=== PATIENT | female | born 1930 | race Caucasian/White ===

== ENCOUNTER 2016-08-14 22:43 | Emergency (ER) | payer MEDICARE, OTHER ==
--- OUTSIDE RECORDS SUMMARY | 2016-08-14 23:02 | XMS REPORT | Continuity of Care Document ---
:1930 Author Organization [facility] ([facility]) Address [address] [place] [address] Phone [phone] Care Team Providers Name Role Phone Bridger Chahal Primary Care Provider [phone] Source Comments This disclosure is being made pursuant to the Care Everywhere program, applicable federal and state laws, and may not contain all informaitonavailable regarding this patient.[facility] ([facility]) Active Allergies and Adverse Reactions Allergen Noted Date Severity Reactions Comments Codeine OTHER STROKE LIKE SYMPTOMS Milk Containing Unknown Products Morphine Nausea & Vomiting Current Medications Not on file Active Problems Problem Noted Date Spinal stenosis, unspecified region other than cervical 12/19/2005 Degeneration of intervertebral disc, site unspecified 06/07/1999 Immunizations Name Dates Previously Given Next Due Influenza, unspecified 03/08/2002 Social History Tobacco Use Types Packs/Day Years Used Date Never Assessed Last Filed Vital Signs Vital Sign Reading Time Taken Blood Pressure 156/78 12/19/2005 2:27 PM CDT Pulse 95 12/19/2005 2:27 PM CDT Temperature 36.3 C (97.34 F) 05/22/2003 10:38 AM [employer] WORK[employer] Respiratory Rate - - Height 1.55 m (5' 1.02") 12/19/2005 2:27 PM CDT Weight 139.898 kg (308 lb 6.7 oz) 12/19/2005 2:27 PM CDT Body Mass Index 58.23 12/19/2005 2:27 PM CDT Oxygen Saturation - - Plan of Care Health Maintenance Due Date Last Done Comments Hepatitis B Vaccine (1 of 3 - Primary 1930 Series) Tdap Vaccine 1942 Td Vaccine 1949 Colonoscopy 03/08/1981 Zoster Vaccine 1991 Osteoporosis Screening (DXA Bone Density) 1996 Pneumococcal Vaccine (1 of 2 - PCV13) 1996 Lipid Disorder Screening 05/22/2008 05/22/2003, 03/08/2002 Influenza Vaccine: Seasonal (#1) 12/10/2015 03/08/2002 Results from Last 3 Months Not on file
[2016-08-14 23:35] LABS: Hematocrit 39.5 % (37.0-47.0); Hemoglobin 13.4 gm/dL (12.5-16.0); Mean Cell Volume 91.4 fl (78-100); Mean Corpuscular Hgb Conc 33.9 g/dl (32-36); Mean Platelet Volume 9.9 fl (6.0-9.5); Neutrophil % 51.9 % (42-75.0); Platelet Count 155 K/mm3 (150-450); Red Blood Count 4.32 M/mm3 (4.2-5.4); Red Cell Distribution Width 13.1 % (11.5-14.0); White Blood Count 7.7 K/mm3 (4.0-10.5)
[2016-08-14 23:55] LABS: ALT 28 U/L (19-67); AST 31 U/L (0-48); Albumin * 3.1 gm/dl (3.4-5.0); Alkaline Phosphatase * 82 U/L (50-170); Anion Gap 14.7 mmol/L (6.8-13.8); BUN/Creatinine Ratio 15.4 (9.0-21.6); Bilirubin, Total 0.3 mg/dL (0.0-1.1); Blood Urea Nitrogen 16 mg/dL (3-23); Ca. Corrected For Albumin 9.3 mg/dL (8.4-10.2); Calcium * 8.9 mg/dL (7.9-10.9); Carbon Dioxide 26.2 mmol/L (24-32.6); Chloride 103 mmol/L (97-106); Glucose * 88 mg/dL (70-110); Potassium 4.9 mmol/L (3.4-4.6); Sodium 139 mmol/L (132-142); Total Protein 6.8 gm/dL (6.2-8.2)
--- NOTE | 2016-08-15 00:06 | ERNOTE ---
Lower Extremity HPI - General Time Seen by Provider: 08/14/16 22:48 Source: patient, family - Immun/Allergies/Home Medications Immunizations: IMMUNIZATION HX Immunizations Up to Date Yes History of Influenza Vaccine No Hx Pneumococcal Vaccination No Allergies/Adverse Reactions: Allergies Allergy/AdvReac Type Severity Reaction Status Date / Time grass pollen-sweet vernal, Allergy Mild Itchy eyes Verified 02/27/16 11:13 standardized [grass poll-sweet vernal, std.] codeine [Codeine] AdvReac Intermediate Trouble Verified 02/27/16 11:13 Speaking, nausea allopurinol AdvReac Mild Rash Verified 02/27/16 11:13 Home Medications: HOME MEDICATIONS Ascorbic Acid [Vitamin C] 1,000 mg PO DAILY 02/27/14 [Last Taken Unknown] Aspirin [Aspirin Enteric Coated] 81 mg PO DAILY 02/27/14 [Last Taken Unknown] Atorvastatin Calcium [Lipitor] 10 mg PO DAILY 02/27/14 [Last Taken Unknown] Calcium Carbonate [Calcium] 500 mg PO DAILY 02/27/14 [Last Taken Unknown] Cyanocobalamin [Vitamin B-12] 1,000 mcg PO DAILY 02/27/14 [Last Taken Unknown] Furosemide [Lasix] 20 mg PO DAILY 02/27/14 [Last Taken Unknown] Garlic [Odorless Garlic] 1,250 mg PO DAILY 02/27/14 [Last Taken Unknown] Glimepiride [Amaryl] 8 mg PO DAILY@0700 02/27/14 [Last Taken Unknown] Lansoprazole [Prevacid] 30 mg PO DAILY 02/27/14 [Last Taken Unknown] Lisinopril 5 mg PO DAILY 02/27/14 [Last Taken Unknown] Nystatin [Mycostatin (Nystatin) Cream] 30 gm TP BID PRN 02/27/14 [Last Taken Unknown] [place] Oil/[place]-3 Fatty Acids [Fish Oil] 1,200 mg PO DAILY 02/27/14 [Last Taken Unknown] Triamcinolone Acetonide [Kenalog 0.1%] 15 gm TP BID PRN 02/27/14 [Last Taken Unknown] Ubidecarenone [Co Q-10] 150 mg PO DAILY 02/27/14 [Last Taken Unknown] Vitamin B Complex [B Complex] 1 each PO DAILY 02/27/14 [Last Taken Unknown] Vitamin E (Dl,Tocopheryl Acet) [Vitamin E] 400 units PO DAILY 02/27/14 [Last Taken Unknown] metFORMIN HCL [Glucophage] 1,000 mg PO BIDWM 02/27/14 [Last Taken Unknown] metFORMIN HCL [Glucophage] 500 mg PO DAILY 02/27/14 [Last Taken Unknown] oxyCODONE HCL [Oxycodone HCl] 10 mg PO QID PRN 02/27/14 [Last Taken Unknown] Cephalexin Monohydrate [Keflex] 500 mg PO QID #40 cap 02/15/15 [Last Taken Unknown] Levofloxacin [Levaquin] 500 mg PO DAILY #10 tab 03/23/15 [Last Taken Unknown] Ciprofloxacin HCl [Cipro] 500 mg PO BID #20 tablet 01/09/16 [Last Taken Unknown] traMADol HCL [Ultram] 50 mg PO QID PRN #20 tablet 02/27/16 [Last Taken Unknown] - History of Present Illness Narrative: pt is a diabetic and has a red weepy right ankle/leg. She has no fever. she has been given Clindamycin and refuses to take it as she read the side effect profile. She has no chills and does not feel sick Review of Systems - Review of Systems Constitutional: Present: no symptoms reported EYE: Present: no symptoms reported ENT: Present: no symptoms reported Respiratory: Present: no symptoms reported Cardiology: Present: no symptoms reported Gastrointestinal/Abdominal: Present: no symptoms reported Genitourinary: Present: no symptoms reported Musculoskeletal: Present: See HPI - Patient's Past Medical History Patient History - Medical: Arthritis, Diabetes Type 2, GERD, Obesity, Osteoarthritis, Other Patient History - Cardiac/Respiratory: Bronchitis Patient History - Cancer: No Hx of Cancer Patient History - Surgical Procedures: Hysterectomy, Other Patient History - Other: None - Family History Mother Family History - Medical: Family History - Cardiac/Respiratory: No pertinent hx Father Family History - Medical: Family History - Cardiac/Respiratory: History Unknown - Social History Living Situations: alone Abuse History: No History of abuse Psych History: No pertinent hx Alcohol Use: none Drug Use: none - Immunizations Immunizations Up to Date: Yes Hx Pneumococcal Vaccination: No History of Influenza Vaccine: No Physical Exam - Physical Exam General Appearance: Present: wd/wn, alert, no apparent distress Respiratory: Present: no respiratory distress, normal breath sounds, no accessory muscle use, chest nontender, lungs clear Cardiovascular/Chest: Present: regular rate, rhythm, no murmur, normal peripheral pulses Gastrointestinal/Abdominal: Present: normal bowel sounds, nontender Extremity Exam: Present: other - both anterior tibial regions are red as in venous stasis. the right ankle area is hyperkeratotic and there is some weepiness noted. Areas are warm but no mary pus or openings noted in skin. ED Progress - Results and Orders Patient's Lab Results:: I have reviewed the patient's lab results. - Vital Signs Patient's Vital Signs:: I have reviewed the patient's vital signs. Vital Signs: Vital Signs 08/14/16 22:51 Temperature 36.2 C L Pulse Rate 88 Respiratory 14 Rate Blood Pressure 145/55 O2 Sat by Pulse 95 Oximetry - Progress/Reassessment Chief Complaint: Lower Extremity Pain/ Injury Plan - Plan Plan: pt is a diabetic but her RBS is 88. she will be given Rocephin 2 gm IV and discharged home. I suggested she speak to her physician before NOT taking what was justifiably prescribed for her. Departure Clinical Impression: Cellulitis of ankle - Departure Disposition: Home self-care Condition: Good Instructions: Diabetes and Foot Care Additional Instructions: follow up with your doctor and please take the Antibiotic prescribed by him. Referrals: Blayne West DO [Primary Care Provider] -
[2016-08-15 01:05] VITALS: BP 138/60
== END 2016-08-15 00:30 | disposition home or self-care (01) ==
LOC: ER 22:43
DX: L03.115 Cellulitis of right lower limb (principal)

== ENCOUNTER 2017-02-21 13:48 | Emergency (ER) | payer MEDICARE ==
--- NOTE | 2017-02-21 14:25 | ERNOTE ---
Integumentary HPI - Narrative Date of Service: 02/21/17 - General Presenting Symptoms: other - cellulitis Time Seen by Provider: 02/21/17 14:02 Source: patient Exam Limitations: no limitations - Immun/Allergies/Home Medications Immunizations: IMMUNIZATION HX Immunizations Up to Date Yes History of Influenza Vaccine No Hx Pneumococcal Vaccination No Allergies/Adverse Reactions: Allergies Allergy/AdvReac Type Severity Reaction Status Date / Time grass pollen-sweet vernal, Allergy Mild Itchy eyes Verified 02/21/17 14:06 standardized [grass poll-sweet vernal, std.] codeine [Codeine] AdvReac Intermediate Trouble Verified 02/21/17 14:06 Speaking, nausea allopurinol AdvReac Mild Rash Verified 02/21/17 14:06 Home Medications: HOME MEDICATIONS Ascorbic Acid [Vitamin C] 1,000 mg PO DAILY 02/27/14 [Last Taken Unknown] Aspirin [Aspirin Enteric Coated] 81 mg PO DAILY 02/27/14 [Last Taken Unknown] Atorvastatin Calcium [Lipitor] 10 mg PO DAILY 02/27/14 [Last Taken Unknown] Calcium Carbonate [Calcium] 500 mg PO DAILY 02/27/14 [Last Taken Unknown] Cyanocobalamin [Vitamin B-12] 1,000 mcg PO DAILY 02/27/14 [Last Taken Unknown] Furosemide [Lasix] 20 mg PO DAILY 02/27/14 [Last Taken Unknown] Garlic [Odorless Garlic] 1,250 mg PO DAILY 02/27/14 [Last Taken Unknown] Glimepiride [Amaryl] 8 mg PO DAILY@0700 02/27/14 [Last Taken Unknown] Lansoprazole [Prevacid] 30 mg PO DAILY 02/27/14 [Last Taken Unknown] Lisinopril 5 mg PO DAILY 02/27/14 [Last Taken Unknown] Nystatin [Mycostatin (Nystatin) Cream] 30 gm TP BID PRN 02/27/14 [Last Taken Unknown] [place] Oil/[place]-3 Fatty Acids [Fish Oil] 1,200 mg PO DAILY 02/27/14 [Last Taken Unknown] Triamcinolone Acetonide [Kenalog 0.1%] 15 gm TP BID PRN 02/27/14 [Last Taken Unknown] Ubidecarenone [Co Q-10] 150 mg PO DAILY 02/27/14 [Last Taken Unknown] Vitamin B Complex [B Complex] 1 each PO DAILY 02/27/14 [Last Taken Unknown] Vitamin E (Dl,Tocopheryl Acet) [Vitamin E] 400 units PO DAILY 02/27/14 [Last Taken Unknown] metFORMIN HCL [Glucophage] 1,000 mg PO BIDWM 02/27/14 [Last Taken Unknown] metFORMIN HCL [Glucophage] 500 mg PO DAILY 02/27/14 [Last Taken Unknown] oxyCODONE HCL [Oxycodone HCl] 10 mg PO QID PRN 02/27/14 [Last Taken Unknown] traMADol HCL [Ultram] 50 mg PO QID PRN #20 tablet 02/27/16 [Last Taken Unknown] Cefdinir 300 mg PO BID 08/18/16 [Last Taken Unknown] Cephalexin Monohydrate [Keflex] 500 mg PO QID #40 cap 02/21/17 [Last Taken Unknown] - History of Present Illness Narrative: Pt. with chronic venous stasis comes in with c/o redness and swelling with leaking BLE for severeal weeks. Pt. has a difficult time getting to the doctor so she was only able to come as she was able today. Pt. denies any fever but states that she has had cellulitis is the past but the lst time she was started on antibiotics and it resolved and was followed up once by the [facility]. Pt. denies ny SOB, CP, NVD, but does states that she has poor apetite and does not eat as much protein as she should. Review of Systems - Review of Systems Constitutional: Present: no symptoms reported EYE: Present: no symptoms reported ENT: Present: no symptoms reported Respiratory: Present: no symptoms reported. Absent: shortness of breath, cough , wheezing Cardiology: Present: no symptoms reported. Absent: chest pain, palpitations, edema Gastrointestinal/Abdominal: Present: no symptoms reported Musculoskeletal: Present: no symptoms reported. Absent: back pain, joint pain Skin: Present: change in color - redness BLE Neurological: Present: no symptoms reported. Absent: headache, dizziness/light- headedness, numbness, tingling All Other Systems: All systems neg except as marked - Patient's Past Medical History Patient History - Medical: Arthritis, Diabetes Type 2, GERD, Obesity, Osteoarthritis Patient History - Cardiac/Respiratory: Bronchitis Patient History - Cancer: No Hx of Cancer Patient History - Surgical Procedures: Hysterectomy, Other Patient History - Other: None LMP (females 10-50): Menopausal - Family History Mother Family History - Medical: Family History - Cardiac/Respiratory: No pertinent hx Father Family History - Medical: Family History - Cardiac/Respiratory: History Unknown - Social History Living Situations: alone Abuse History: No History of abuse Psych History: No pertinent hx Smoking Status: Never smoker Alcohol Use: none Drug Use: none - Immunizations Immunizations Up to Date: Yes Hx Pneumococcal Vaccination: No History of Influenza Vaccine: No Physical Exam - Physical Exam General Appearance: Present: wd/wn, alert, no apparent distress Head Exam: Present: normal inspection, no evidence of injury Eye Exam: Normal inspection: bilateral, PERRL: bilateral, EOMI: bilateral Neck: Present: normal inspection, nontender. Absent: lymphadenopathy (R), lymphadenopathy (L) Respiratory: Present: no respiratory distress, normal breath sounds, no accessory muscle use, chest nontender, lungs clear Cardiovascular/Chest: Present: regular rate, rhythm, no murmur, normal peripheral pulses Back Exam: Present: normal inspection Extremity Exam: Present: normal inspection, non-tender, normal range of motion, no edema Neurological Exam: Present: alert, oriented, normal mood/affect, no motor/ sensory deficits Skin Exam: Present: warm/dry, pallor - R ankle, other - redness BLE with crepitus R ankle and warmth BLE ED Progress - Results and Orders Patient's Lab Results:: I have reviewed the patient's lab results. - Vital Signs Patient's Vital Signs:: I have reviewed the patient's vital signs. Vital Signs: Vital Signs 02/21/17 13:50 Temperature 36.5 C Pulse Rate 98 Respiratory 16 Rate Blood Pressure 142/64 O2 Sat by Pulse 96 Oximetry - Progress/Reassessment Chief Complaint: Cellulitis Departure Clinical Impression: Cellulitis Qualifiers: Site of cellulitis: extremity Site of cellulitis of extremity: lower extremity Laterality: unspecified laterality Qualified Code(s): L03.119 - Cellulitis of unspecified part of limb - Departure Disposition: Home self-care Condition: Good Instructions: Cellulitis, Adult, [id number] Additional Instructions: Please follow up with primary provider in 2-3 days. Please keep silvadene cream and kerlix on BLE and call wound care center for dressing cahange and follow up care. Referrals: Blayne West DO [Primary Care Provider] - Prescriptions: Cephalexin Monohydrate [Keflex] 500 mg PO QID #40 cap
[2017-02-21 14:42] LABS: Hematocrit 37.7 % (37.0-47.0); Hemoglobin 12.9 gm/dL (12.5-16.0); Mean Cell Volume 93.5 fl (78-100); Mean Corpuscular Hgb Conc 34.2 g/dl (32-36); Mean Platelet Volume 10.3 fl (6.0-9.5); Neutrophil # 4.5 K/mm3 (1.3-6.0); Neutrophil % 60.8 % (42-75.0); Platelet Count 163 K/mm3 (150-450); Red Blood Count 4.03 M/mm3 (4.2-5.4); Red Cell Distribution Width 13.2 % (11.5-14.0); White Blood Count 7.4 K/mm3 (4.0-10.5)
[2017-02-21 14:56] LABS: Anion Gap 11.8 mmol/L (6.8-13.8); BUN/Creatinine Ratio 20.6 (9.0-21.6); Bilirubin, Total 0.6 mg/dL (0.0-1.1); CRP 0.9 mg/dL (0.0-0.9); Ca. Corrected For Albumin 9.8 mg/dL (8.4-10.2); Calcium * 9.3 mg/dL (7.9-10.9); Carbon Dioxide 30.1 mmol/L (24-32.6); Potassium 4.9 mmol/L (3.4-4.6); Total Protein 6.6 gm/dL (6.2-8.2)
[2017-02-21] MEDS ORDERED: SILVER SULFADIAZINE 50 APPL JAR TP ONE ×2 (15:23→15:24)
[2017-02-21 16:29] VITALS: BP 126/53
== END 2017-02-21 16:14 | disposition home or self-care (01) ==
LOC: ER 13:48
DX: L03.119 Cellulitis of unspecified part of limb (principal)

== ENCOUNTER 2017-11-03 09:00 | Observation (INO) | payer MEDICARE ==
[2017-11-03 09:42] LABS: Hematocrit 36.1 % (37.0-47.0); Hemoglobin 11.9 gm/dL (12.5-16.0); Mean Cell Volume 91.6 fl (78-100); Mean Corpuscular Hemoglobin 30.2 pg (27-31); Mean Platelet Volume 9.8 fl (8-12.5); Neutrophil # 8.3 K/mm3 (1.3-6.0); Neutrophil % 84.1 % (42-75.0); Platelet Count 163 K/mm3 (150-450); Red Blood Count 3.94 M/mm3 (4.2-5.4); Red Cell Distribution Width 13.6 % (11.5-14.0); White Blood Count 9.9 K/mm3 (4.0-10.5)
[2017-11-03 10:01] LABS: Albumin * 2.5 gm/dl (3.4-5.0); Anion Gap 11.8 mmol/L (6.8-13.8); BUN/Creatinine Ratio 16.8 (9.0-21.6); Bilirubin, Total 0.7 mg/dL (0.0-1.1); Ca. Corrected For Albumin 9.9 mg/dL (8.4-10.2); Carbon Dioxide 26.6 mmol/L (24-32.6); Potassium 4.4 mmol/L (3.4-4.6); Total Protein 5.9 gm/dL (6.2-8.2)
[2017-11-03 10:01] LABS: Urine Bilirubin Negative (NEGATIVE); Urine Blood Negative /ul (NEGATIVE); Urine Ketone 15 mg/dL (NEGATIVE); Urine Nitrite Negative (NEGATIVE); Urine Protein Negative (NEGATIVE); Urine Urobilinogen Normal (NORMAL); Urine pH 5.5 pH (5.0-7.0)
[2017-11-03 10:11] LABS: Urine Appearance Clear (CLEAR); Urine Bacteria None Seen; Urine Color Yellow; Urine RBC None Seen /hpf (0-5); Urine Transitional Epi Cells Moderate - 2+ /hpf; Urine WBC None Seen /hpf (0-5)
--- NOTE | 2017-11-03 11:11 | ERNOTE ---
Lower Extremity HPI - Narrative Date of Service: 11/03/17 - General Lower Extremities Pain: knee: left Time Seen by Provider: 11/03/17 09:10 Source: patient, family Exam Limitations: no limitations - Immun/Allergies/Home Medications Immunizations: IMMUNIZATION HX Immunizations Up to Date Yes History of Influenza Vaccine No Hx Pneumococcal Vaccination No Allergies/Adverse Reactions: Allergies Allergy/AdvReac Type Severity Reaction Status Date / Time grass pollen-sweet vernal, Allergy Mild Itchy eyes Verified 11/03/17 09:08 standardized [grass poll-sweet vernal, std.] codeine [Codeine] AdvReac Intermediate Trouble Verified 11/03/17 09:08 Speaking, nausea allopurinol AdvReac Mild Rash Verified 11/03/17 09:08 Home Medications: HOME MEDICATIONS Ascorbic Acid [Vitamin C] 1,000 mg PO DAILY 02/27/14 [Last Taken Unknown] Aspirin [Aspirin Enteric Coated] 81 mg PO DAILY 02/27/14 [Last Taken Unknown] Atorvastatin Calcium [Lipitor] 10 mg PO DAILY 02/27/14 [Last Taken Unknown] Calcium Carbonate [Calcium] 500 mg PO DAILY 02/27/14 [Last Taken Unknown] Cyanocobalamin [Vitamin B-12] 1,000 mcg PO DAILY 02/27/14 [Last Taken Unknown] Furosemide [Lasix] 20 mg PO DAILY 02/27/14 [Last Taken Unknown] Garlic [Odorless Garlic] 1,250 mg PO DAILY 02/27/14 [Last Taken Unknown] Glimepiride [Amaryl] 8 mg PO DAILY@0700 02/27/14 [Last Taken Unknown] Lansoprazole [Prevacid] 30 mg PO DAILY 02/27/14 [Last Taken Unknown] Lisinopril 5 mg PO DAILY 02/27/14 [Last Taken Unknown] Nystatin [Mycostatin (Nystatin) Cream] 30 gm TP BID PRN 02/27/14 [Last Taken Unknown] [place] Oil/[place]-3 Fatty Acids [Fish Oil] 1,200 mg PO DAILY 02/27/14 [Last Taken Unknown] Triamcinolone Acetonide [Kenalog 0.1%] 15 gm TP BID PRN 02/27/14 [Last Taken Unknown] Ubidecarenone [Co Q-10] 150 mg PO DAILY 02/27/14 [Last Taken Unknown] Vitamin B Complex [B Complex] 1 each PO DAILY 02/27/14 [Last Taken Unknown] Vitamin E (Dl,Tocopheryl Acet) [Vitamin E] 400 units PO DAILY 02/27/14 [Last Taken Unknown] metFORMIN HCL [Glucophage] 1,000 mg PO BIDWM 02/27/14 [Last Taken Unknown] metFORMIN HCL [Glucophage] 500 mg PO DAILY 02/27/14 [Last Taken Unknown] oxyCODONE HCL [Oxycodone HCl] 10 mg PO QID PRN 02/27/14 [Last Taken Unknown] - History of Present Illness Narrative: patient fell out of bed in night c/o left knee pain and swelling Occurred: this morning Location of Incident: home Method of Injury: Reports: fell, direct blow Reason for Fall: Reports: other - rolled out of bed Loss of Consciousness: Reports: no loss of consciousness Modifying Factors - (Improves): Reports: rest Modifying Factors - (Worsens): Reports: movement Associated Symptoms: Reports: unable to bear weight Other Injuries: Reports: none Prior Treament: Reports: recently seen, treated by physician Review of Systems - Narrative Narrative: unremarkable - Review of Systems Constitutional: Present: See HPI, weakness, fatigue, malaise EYE: Present: no symptoms reported ENT: Present: no symptoms reported Respiratory: Present: no symptoms reported Cardiology: Present: no symptoms reported Gastrointestinal/Abdominal: Present: no symptoms reported Genitourinary: Present: no symptoms reported Musculoskeletal: Present: See HPI, joint pain, joint swelling, other - left knee Skin: Present: no symptoms reported Neurological: Present: no symptoms reported Endocrine: Present: no symptoms reported Hematologic/Lymphatic: Present: no symptoms reported Psych: Present: no symptoms reported All Other Systems: All systems neg except as marked - Narrative Narrative: unremarkable - Patient's Past Medical History Patient History - Medical: Arthritis, Diabetes Type 2, GERD, Obesity, Osteoarthritis, Other Patient History - Cardiac/Respiratory: Bronchitis Patient History - Cancer: No Hx of Cancer Patient History - Surgical Procedures: Hysterectomy, Other Patient History - Other: None LMP (females 10-50): Menopausal - Family History Family History:: no untoward family reactions to anesthesia, no familial bleeding tendencies, no family history of clotting disorders, no family history of premature - Family History Mother Family History - Medical: Family History - Cardiac/Respiratory: No pertinent hx Family History - Cancer: No pertinent family hx Father Family History - Medical: Family History - Cardiac/Respiratory: History Unknown Family History - Cancer: No pertinent family hx - Social History Living Situations: home Abuse History: No History of abuse Psych History: No pertinent hx Does anyone smoke in the home?: No Smoking Status: Never smoker Have you smoked in the past 12 months: No Do you dip or chew tobacco: No Patient requests Smoking Cessation Consult: No Initiate information on Smoking Cessation: No Alcohol Use: none Drug Use: none - Immunizations Immunizations Up to Date: Yes Hx Pneumococcal Vaccination: No History of Influenza Vaccine: No Physical Exam - Physical Exam General Appearance: Present: mild distress Head Exam: Present: normal inspection, no evidence of injury Eye Exam: Normal inspection: bilateral, PERRL: bilateral, EOMI: bilateral Ears, Nose, Throat: Present: normal ENT inspection, normal pharynx Neck: Present: normal inspection, nontender Respiratory: Present: no respiratory distress, normal breath sounds, no accessory muscle use, chest nontender, lungs clear Cardiovascular/Chest: Present: regular rate, rhythm, systolic murmur Gastrointestinal/Abdominal: Present: normal bowel sounds, nontender, nondistended, soft, no organomegaly Back Exam: Present: normal inspection, normal range of motion, no CVA tenderness , no vertebral tenderness Extremity Exam: Present: normal except - - left knee swollen , no deformity noted Neurological Exam: Present: alert, oriented, normal mood/affect, no motor/ sensory deficits Skin Exam: Present: normal color, warm/dry Lymphatic Exam: Present: no adenopathy ED Progress - Date and Time Seen: Date and Time: 11/03/17 12:38 patient cannot ambulate due to weakness and requires therapy in [facility] - Results and Orders Patient's Lab Results:: I have reviewed the patient's lab results. - Vital Signs Patient's Vital Signs:: I have reviewed the patient's vital signs. Vital Signs: Vital Signs 11/03/17 11/03/17 11/03/17 09:02 09:11 09:42 Temperature 36.8 C Pulse Rate 118 H 113 H 108 H Respiratory 14 12 12 Rate Blood Pressure 112/58 112/58 116/50 O2 Sat by Pulse 93 95 97 Oximetry 11/03/17 11/03/17 10:01 10:25 Temperature Pulse Rate 105 H 103 H Respiratory 17 17 Rate Blood Pressure 114/52 116/56 O2 Sat by Pulse 91 92 Oximetry - X-Ray X-Ray #1 X-Ray: knee - effusion no acute fx, Interpretation: Discd w/ radiologist - Progress/Reassessment Chief Complaint: Lower Extremity Pain/ Injury - Transfer of Care Expected Disposition: Admit Plan - Plan Plan: to admit to observation for weakness and paiin management of knee sprain Departure Clinical Impression: Left knee sprain - Departure Disposition: Still a patient Condition: Fair
[2017-11-03] MEDS ORDERED: HYDROcodone/ACETAMINOPHEN 1 EACH TABLET PO ONE (12:22)
[2017-11-03] MEDS ORDERED: HYDROcodone/ACETAMINOPHEN 1 EACH TABLET ONE (12:24)
[2017-11-03] MEDS: HYDROcodone/ACETAMINOPHEN 1 EACH TABLET PO PRN (17:11)
--- NOTE | 2017-11-03 19:41 | HP ---
Chief Complaint - Chief Complaint Date of Service: 11/03/17 Time of Service: 19:41 Chief Complaint: ' Fall, weakness'. Source of HPI- Pt; reliable, ERP report/ notes. History of Present Illness: Mrs. Adkins is a 87-yr-old WF who is a and a pt of Dr. Yudi Camargo. Her PMH is significant for: Chronic back pain, Chronic pain syndrome, DM II, Diverticulosis, HTN, Fibromyalgia, HLD,Morbid Obesity, Osteoarthritis & Venous Stasis dermatitis. Pt states that for at least 5 days prior to coming to the hospital, her LT knee had been hurting. Her lift chair has been broken for a while and therefore mobility has been harder. Last night around 0400am, she lost balance due to weakness, ended up falling and landing on the LT knee. There was no loss of consciousness. The only pain she endorses is on her LT knee which became worsened after the fall. She laid on the floor for about 4 hours and kept yelling for help about every 30 minutes hoping neighbours would hear her. Her daughter came to check on her around 0800am as she was unreachable by phone. She called the EMS for her. Pt denies fever, chills, n/v, coughing, sob and abdominal pain. At the ED, labwork involving CBC, BMP & UA were unremarkable. The EKG did not show any evidence of ACS/ID. The LT knee imaging did not show any acute findings involving fracture or dislocation. Pt required a maximum of 2 with transfers due to pain and weakness. Therefore, pt was admitted under observation due to very poor mobility that can lead to life threatening injuries and will need placement finding for strengthening rehabilitation. - Patient's Past Medical History Patient History - Medical: Arthritis, Diabetes Type 2, GERD, Obesity, Osteoarthritis, Other - Diverticulosis,Fibromyalgia,Morbid Obesity, Venous Stasis dermatitis Patient History - Cardiac/Respiratory: Bronchitis, Hypertension, Hyperlipidemia Patient History - Cancer: No Hx of Cancer Patient History - Surgical Procedures: Hysterectomy, Other Patient History - Other: None LMP (females 10-50): Menopausal - Family History Family History:: no untoward family reactions to anesthesia, no familial bleeding tendencies, no family history of clotting disorders, no family history of premature - Family History Mother Family History - Medical: Family History - Cardiac/Respiratory: No pertinent hx Family History - Cancer: No pertinent family hx Father Family History - Medical: Family History - Cardiac/Respiratory: History Unknown Family History - Cancer: No pertinent family hx - Social History Living Situations: home Abuse History: No History of abuse Psych History: No pertinent hx Does anyone smoke in the home?: No Smoking Status: Never smoker Have you smoked in the past 12 months: No Do you dip or chew tobacco: No Patient requests Smoking Cessation Consult: No Initiate information on Smoking Cessation: No Alcohol Use: none Drug Use: none - Immunizations Immunizations Up to Date: Yes Hx Pneumococcal Vaccination: No History of Influenza Vaccine: No Review Of Systems (GEN) - Review of Systems Generalized/Overall Review: Present: Weakness. Absent: Chills, Fever, Malaise EENTM: Absent: Eye Pain, Blurred Vision, Tearing Respiratory: Absent: Cough, Shortness of Breath, Orthopnea Cardiac: Absent: Chest Pain, Edema, Palpitations Abdominal: Absent: Nausea, Vomiting, Hematemesis, Abdominal Pain, Constipation, Diarrhea Genitourinary: Absent: Burning, Itching, Urgency, Frequency, Incontinent Musculoskeletal: Present: Joint Pain, Back Pain Neurological: Absent: Headache, Anxiety, Depressed, Weakness Skin: Present: Other - erythema on folds.. Absent: Dryness, Lesions Misc: All systems neg except as marked Immunizations: IMMUNIZATION HX Immunizations Up to Date Yes History of Influenza Vaccine No Hx Pneumococcal Vaccination No Allergies/Adverse Reactions: Allergies Allergy/AdvReac Type Severity Reaction Status Date / Time grass pollen-sweet vernal, Allergy Mild Itchy eyes Verified 11/03/17 09:08 standardized [grass poll-sweet vernal, std.] codeine [Codeine] AdvReac Intermediate Trouble Verified 11/03/17 09:08 Speaking, nausea allopurinol AdvReac Mild Rash Verified 11/03/17 09:08 Home Medications: HOME MEDICATIONS Ascorbic Acid [Vitamin C] 1,000 mg PO BID 11/03/17 [Last Taken Unknown] Aspirin [Aspir-Low] 81 mg PO DAILY 11/03/17 [Last Taken Unknown] Atorvastatin Calcium 10 mg PO DAILY 11/03/17 [Last Taken Unknown] B-Complex with Vitamin C [Super B Complex-Vitamin C] 1 each PO DAILY 11/03/17 [ Last Taken Unknown] Calcium Carbonate/Vitamin D3 [Calcium 600-Vit D3 400 Tablet] 1 each PO BID 11/03 [Last Taken Unknown] Cholecalciferol (Vitamin D3) [Vitamin D3] 1,000 unit PO BID 11/03/17 [Last Taken Unknown] Clotrimazole [Lotrimin Cream] 1 appl TP DAILY 11/03/17 [Last Taken Unknown] Cyanocobalamin (Vitamin B-12) [Vitamin B-12] 500 mcg PO DAILY 11/03/17 [Last Taken Unknown] Docusate Sodium [Stool Softener] 250 mg PO DAILY PRN 11/03/17 [Last Taken Unknown] Furosemide [Lasix] 40 mg PO DAILY 11/03/17 [Last Taken Unknown] Garlic [Odorless Garlic] 1,250 mg PO BID 11/03/17 [Last Taken Unknown] Glimepiride [Amaryl] 4 mg PO DAILY 11/03/17 [Last Taken Unknown] Lisinopril 5 mg PO DAILY 11/03/17 [Last Taken Unknown] Nystatin [Mycostatin Cream] 1 appl TP BID 11/03/17 [Last Taken Unknown] [place]-3S/Dha/Epa/Fish Oil [Fish Oil 1,200 mg Softgel] 1 each PO BID 11/03/17 [ Last Taken Unknown] Polyvinyl Alcohol [Artificial Tears] 1 - 2 drop EACHEYE DAILY PRN 11/03/17 [ Last Taken Unknown] Silver Sulfadiazine [Silvadene] 1 appl TP DAILY 11/03/17 [Last Taken Unknown] Sodium Chloride [[place] Saline] 2 sprays NS DAILY PRN 11/03/17 [Last Taken Unknown] Triamcinolone Acetonide [Kenalog 0.025% Cream] 1 appl TP DAILY 11/03/17 [Last Taken Unknown] Ubidecarenone/Vitamin E Mixed [[id number] E 200 mg-20 Unit Sfg] 1 each PO DAILY 11/03/17 [Last Taken Unknown] Vitamin E 400 unit PO DAILY 11/03/17 [Last Taken Unknown] Zinc Oxide 1 appl TP DAILY 11/03/17 [Last Taken Unknown] metFORMIN HCL [Metformin HCl] 1,000 mg PO BIDWM 11/03/17 [Last Taken Unknown] metFORMIN HCL [Metformin HCl] 500 mg PO 1200 11/03/17 [Last Taken Unknown] oxyCODONE HCL [Oxycodone HCl] 10 mg PO Q6H PRN 11/03/17 [Last Taken Unknown] Exam - Exam Vital Signs: Vital Signs - Last Taken Temp 37.2 C 11/03/17 14:50 Pulse 102 H 11/03/17 14:50 Resp 18 11/03/17 14:50 BP 121/65 11/03/17 14:50 Pulse Ox 100 11/03/17 14:50 Constitutional: Present: Alert, Oriented x3, Cooperative, Mild distress, Elderly ENT Exam: Present: normal ENT inspection, dry mucous membranes Eye Exam: bilateral eye: normal inspection, PERRL Neck: Present: non-tender, full range of motion, supple Back Exam: Present: normal inspection, no CVA tenderness Breasts: Present: Exam deferred Respiratory: Present: no respiratory distress, no accessory muscle use, No rales , No wheezing Cardiovascular/Chest: Present: normal peripheral pulses, systolic murmur Abdomen: Present: Normal bowel sounds, soft, nontender /Rectal: Present: Exam deferred Extremity: Present: leg pain - LT. Absent: normal range of motion - LT leg Skin Exam: Present: other - redness/excoriation on the abdominal and perineal folds. Lymphatic: Present: no adenopathy Neurologic: Present: alert, normal mood/affect, oriented x 3 Appearance: Present: appropriate appearance, appropriate insight Eye contact: Present: cooperative, good eye contact, normal speech Thoughts: Present: normal thought pattern, no apparent hallucination Diagnostic Studies: Laboratory Results WBC 9.9 K/mm3 (4.0-10.5) 11/03/17 09:35 RBC 3.94 M/mm3 (4.2-5.4) L 11/03/17 09:35 Hgb 11.9 gm/dL (12.5-16.0) L 11/03/17 09:35 Hct 36.1 % (37.0-47.0) L 11/03/17 09:35 MCV 91.6 fl (78-100) 11/03/17 09:35 MCH 30.2 pg (27-31) 11/03/17 09:35 MCHC 33.0 g/dl (32-36) 11/03/17 09:35 RDW 13.6 % (11.5-14.0) 11/03/17 09:35 Plt Count 163 K/mm3 (150-450) 11/03/17 09:35 MPV 9.8 fl (8-12.5) 11/03/17 09:35 Immature Gran % (Auto) 0.40 % (0.001-0.429) 11/03/17 09:35 Immature Gran # (Auto) 0.04 K/mm3 (0.000-0.0310) H 11/03/17 09:35 Neutrophils % 84.1 % (42-75.0) H 11/03/17 09:35 Lymphocytes % 8.2 % (20-51) L 11/03/17 09:35 Monocytes % 6.7 % (0.0-9) 11/03/17 09:35 Eosinophils % 0.1 % (0.0-3.0) 11/03/17 09:35 Basophils % 0.5 % (0.0-1.0) 11/03/17 09:35 Nucleated RBC % 0.0 k/mm3 (0-1) 11/03/17 09:35 Neutrophils # 8.3 K/mm3 (1.3-6.0) H 11/03/17 09:35 Lymphocytes # 0.81 k/mm3 (1.5-3.5) L 11/03/17 09:35 Monocytes # 0.7 k/mm3 (0.0-1.0) 11/03/17 09:35 Eosinophils # 0.0 k/mm3 (0.0-0.7) 11/03/17 09:35 Absolute Basophils 0.1 k/mm3 (0.0-0.1) 11/03/17 09:35 Sodium 137 mmol/L (132-142) 11/03/17 09:35 Plasma Sodium 139 mmol/L (130-142) 11/03/17 09:35 Potassium 4.4 mmol/L (3.4-4.6) 11/03/17 09:35 Chloride 103 mmol/L (97-106) 11/03/17 09:35 Carbon Dioxide 26.6 mmol/L (24-32.6) 11/03/17 09:35 Anion Gap 11.8 mmol/L (6.8-13.8) 11/03/17 09:35 BUN 16 mg/dL (3-23) 11/03/17 09:35 Creatinine 0.95 mg/dL (0.4-1.4) 11/03/17 09:35 Est GFR (Non-Af Amer) 59 mL/min (60-130) L 11/03/17 09:35 BUN/Creatinine Ratio 16.8 (9.0-21.6) 11/03/17 09:35 Random Glucose 205 mg/dL (70-110) H 11/03/17 09:35 Calcium 9.0 mg/dL (7.9-10.9) 11/03/17 09:35 Calcium Adj for Albumin 9.9 mg/dL (8.4-10.2) 11/03/17 09:35 Total Bilirubin 0.7 mg/dL (0.0-1.1) 11/03/17 09:35 AST 26 U/L (0-48) 11/03/17 09:35 ALT 25 U/L (19-67) 11/03/17 09:35 Alkaline Phosphatase 82 U/L (50-170) 11/03/17 09:35 Total Protein 5.9 gm/dL (6.2-8.2) L 11/03/17 09:35 Albumin 2.5 gm/dl (3.4-5.0) L 11/03/17 09:35 Urine Color Yellow 11/03/17 09:31 Urine Appearance Clear (CLEAR) 11/03/17 09:31 Urine pH 5.5 pH (5.0-7.0) 11/03/17 09:31 Ur Specific Force 1.020 SP.GR. (1.005-1.010) 11/03/17 09:31 Urine Protein Negative mg/dL (NEGATIVE) 11/03/17 09:31 Urine Glucose (UA) Negative mg/dL (NEGATIVE) 11/03/17 09:31 Urine Ketones 15 mg/dL (NEGATIVE) 11/03/17 09:31 Urine Blood Negative /ul (NEGATIVE) 11/03/17 09:31 Urine Nitrate Negative (NEGATIVE) 11/03/17 09:31 Urine Bilirubin Negative mg/dl (NEGATIVE) 11/03/17 09:31 Urine Urobilinogen Normal EU/dl (NORMAL) 11/03/17 09:31 Ur Leukocyte Esterase Negative /ul (NEGATIVE) 11/03/17 09:31 Urine RBC None seen /hpf (0-5) 11/03/17 09:31 Urine WBC None seen /hpf (0-5) 11/03/17 09:31 Ur Epithelial Cells 5-10 /hpf (0-5) H 11/03/17 09:31 Ur Transition Epith Cell Moderate - 2+ /hpf (NONE) H 11/03/17 09:31 Urine Bacteria None seen (NONE) 11/03/17 09:31 Urine Culture Comments Culture to follow 11/03/17 09:31 Assessment/Plan - Assessment/Plan (1) Left knee pain Assessment: The x-ray imaging did not have any acute findings involving fracture or dislocation, however, there was soft tissue swelling with mild to moderate joint knee effusion and pt has excessive pain with minimal movement/ambulation. The joint is not red or hot and therefore doubt septic arthritis. ? non- septic bursitis. May consider consulting ortho. Provide treatment with anti- inflammatory drugs, apply heat or cold and will need continued rehabilitation. Problem: Acute (2) Generalized weakness Assessment: Will have case managment assist with placement finding. Problem: Acute (3) Diabetes Problem: Chronic Qualifiers: Diabetes mellitus type: type 2 (4) HTN (hypertension) Problem: Chronic Qualifiers: Hypertension type: essential hypertension Qualified Code(s): I10 - Essential (primary) hypertension (5) HLD (hyperlipidemia) Problem: Chronic (6) Chronic pain syndrome Problem: Chronic
[2017-11-03] MEDS ORDERED: DOCUSATE CALCIUM 240 MG CAPSULE PO PRN (20:00)
[2017-11-03] MEDS ORDERED: NYSTATIN 15 APPL TUBE TP SCH (21:00)
[2017-11-03] MEDS: NYSTATIN 15 APPL BTL TP SCH ×2 (22:05)
[2017-11-03] MEDS: oxyCODONE HCL 5 MG TABLET PO PRN (22:05)
[2017-11-03] MEDS: CLOTRIMAZOLE 30 APPL TUBE TP SCH (22:21)
[2017-11-03] MEDS: CALCIUM CARBONATE/VITAMIN D3 1 TAB TABLET PO SCH (22:21)
[2017-11-03] MEDS: OMEGA-3 FATTY ACIDS 1 CAP CAPSULE PO SCH (22:22)
[2017-11-03] MEDS: CHOLECALCIFEROL 1,000 UNIT CAPSULE PO SCH (22:22)
[2017-11-03] MEDS: ASCORBIC ACID 500 MG TABLET PO SCH (22:22)
[2017-11-03] MEDS ORDERED: IBUPROFEN PO PRN (23:22)
[2017-11-04] MEDS: HYDROcodone/ACETAMINOPHEN 1 EACH TABLET PO PRN (06:28)
[2017-11-04] MEDS: CALCIUM CARBONATE/VITAMIN D3 1 TAB TABLET PO SCH (08:10)
[2017-11-04] MEDS: CHOLECALCIFEROL 1,000 UNIT CAPSULE PO SCH (08:11)
[2017-11-04] MEDS: ASCORBIC ACID 500 MG TABLET PO SCH (08:11)
[2017-11-04] MEDS: OMEGA-3 FATTY ACIDS 1 CAP CAPSULE PO SCH (08:12)
[2017-11-04] MEDS: NYSTATIN 15 APPL BTL TP SCH (08:12)
[2017-11-04] MEDS: CLOTRIMAZOLE 30 APPL TUBE TP SCH (08:12)
[2017-11-04] MEDS ORDERED: CYANOCOBALAMIN 1,000 MCG TABLET PO SCH (09:00)
[2017-11-04] MEDS ORDERED: ROSUVASTATIN CALCIUM 10 MG TABLET PO SCH ×2 (09:00→21:00)
[2017-11-04] MEDS ORDERED: VITAMIN B COMP W-C 1 TAB TABLET PO SCH (09:00)
[2017-11-04] MEDS ORDERED: GLIMEPIRIDE 4 MG TABLET PO SCH (09:00)
[2017-11-04] MEDS ORDERED: ASPIRIN 81 MG TABLET.DR PO SCH (09:00)
[2017-11-04] MEDS ORDERED: FUROSEMIDE 40 MG TABLET PO SCH (09:00)
[2017-11-04] MEDS ORDERED: LISINOPRIL 5 MG TABLET PO SCH (09:00)
[2017-11-04] MEDS: oxyCODONE HCL 5 MG TABLET PO PRN (10:14)
[2017-11-04 11:33] VITALS: BP 104/72
[2017-11-04] MEDS ORDERED: metFORMIN HCL 500 MG TABLET PO SCH (12:00)
[2017-11-04] MEDS ORDERED: HYDROmorphone HCL 2 MG/ML VIAL IV PRN ×2 (13:26→13:27)
--- NOTE | 2017-11-04 14:47 | DS ---
(1) Debility Problem: Acute (2) Tibial plateau fracture, left Problem: Suspected (3) Generalized weakness Problem: Acute (4) Left knee pain Problem: Acute (5) Left knee sprain Problem: Acute (6) Chronic pain syndrome Problem: Chronic (7) HLD (hyperlipidemia) Problem: Chronic (8) HTN (hypertension) Problem: Chronic Qualifiers: Hypertension type: essential hypertension Qualified Code(s): I10 - Essential (primary) hypertension (9) Cervical radiculopathy Problem: Chronic (10) Venous (peripheral) insufficiency Problem: Chronic (11) Venous stasis dermatitis of both lower extremities Problem: Chronic (12) Type 2 diabetes mellitus Problem: Chronic Description of Stay: Hospital Course: Patient admitted after having a fall. She has a possible tibial plateau fracture and per ortho, patient can be weight bearing as tolerated and follow-up as an outpatient in 2-3 weeks. Patient had an uneventful admission and was discharged to SNF in stable condition. Procedures Performed: none Discharge Location: Other - [facility] Disposition: SNF Condition: Stable Level of Care: SNF Discharge Activity: Activity as tolerated Discharge Diet: Consistent carbs, Low salt, Low fat/chol Shelter Therapy: Physicial Therapy, Occupation Therapy Additional Patient Instructions (free text): -Please make TCM appointment unless correction discharge. Thank you! Simona @ [phone]. -Follow-up with PCP or care center physician within 2 weeks Follow up with Dr. De Guzman on ThursdayNovember 20 at 10:30am Weight bearing and range of motion as tolerated to affected extremity Prescriptions (Any new or edited meds): oxyCODONE HCL [Oxycodone HCl] 10 mg PO Q6H PRN #50 tab PRN Reason: Severe Pain (Pain Scale 7-10) Complete Home Medications List: Complete Home Medication List: Ascorbic Acid [Vitamin C] 1,000 mg PO BID 11/03/17 Aspirin [Aspir-Low] 81 mg PO DAILY 11/03/17 Atorvastatin Calcium 10 mg PO DAILY 11/03/17 B-Complex with Vitamin C [Super B Complex-Vitamin C] 1 ea PO DAILY 11/03/17 Calcium Carbonate/Vitamin D3 [Calcium 600-Vit D3 400 Tablet] 1 ea PO BID Cholecalciferol (Vitamin D3) [Vitamin D3] 1,000 unit PO BID 11/03/17 Clotrimazole [Lotrimin Cream] 1 appl TP DAILY 11/03/17 Cyanocobalamin (Vitamin B-12) [Vitamin B-12] 500 mcg PO DAILY 11/03/17 Docusate Sodium [Stool Softener] 250 mg PO DAILY PRN 11/03/17 Furosemide [Lasix] 40 mg PO DAILY 11/03/17 Garlic [Odorless Garlic] 1,250 mg PO BID 11/03/17 Glimepiride [Amaryl] 4 mg PO DAILY 11/03/17 Lisinopril 5 mg PO DAILY 11/03/17 Nystatin [Mycostatin Cream] 1 appl TP BID 11/03/17 [place]-3S/Dha/Epa/Fish Oil [Fish Oil 1,200 mg Softgel] 1 ea PO BID 11/03/17 Polyvinyl Alcohol [Artificial Tears] 1 - 2 drp EACHEYE DAILY PRN 11/03/17 Silver Sulfadiazine [Silvadene] 1 appl TP DAILY 11/03/17 Sodium Chloride [[place] Saline] 2 sprays NS DAILY PRN 11/03/17 Triamcinolone Acetonide [Kenalog 0.025% Cream] 1 appl TP DAILY 11/03/17 Ubidecarenone/Vitamin E Mixed [[id number]-[id number] E 200 mg-20 Unit Sfg] 1 ea PO DAILY Vitamin E 400 unit PO DAILY 11/03/17 Zinc Oxide 1 appl TP DAILY 11/03/17 metFORMIN HCL [Metformin HCl] 1,000 mg PO BIDWM 11/03/17 oxyCODONE HCL [Oxycodone HCl] 10 mg PO Q6H PRN #50 tab 11/04/17
== END 2017-11-04 15:30 ==
LOC: ER 09:00 → MS 14:33
PROVIDERS: ADMIT Internal Medicine; ATTEND Internal Medicine
DX: E11.9 Type 2 diabetes mellitus without complications; Z91.81 History of falling; G89.4 Chronic pain syndrome; Z68.41 Body mass index [BMI] 40.0-44.9, adult; E66.01 Morbid (severe) obesity due to excess calories; W06.XXXA Fall from bed, initial encounter; Y92.013 Bedroom of single-family (private) house as the place of occurrence of the external cause; E78.5 Hyperlipidemia, unspecified; I10 Essential (primary) hypertension; S82.145A Nondisplaced bicondylar fracture of left tibia, initial encounter for closed fracture
CPT/HCPCS: 36415; 73562; 73721; 80053; 81001; 85025; 87086; 93005; 96374; 97110; 97161; 99284; G0378; G8978; G8979; G8980